=== PATIENT | male | born 1995 | race Caucasian/White ===

== ENCOUNTER 2019-03-16 20:33 | Emergency (ER) | payer SELFPAY ==
[2019-03-17] MEDS ORDERED: Lidocaine 1% INJ* 10 MG/ML 30 ML SDV INJ ONE (00:17)
[2019-03-17] MEDS ORDERED: Tetan/Diph/Pertus SYR(Tdap)* 0.5 ML SYR(BOOSTRIX) use SYR contains LATEX IM ONE (00:17)
--- NOTE | 2019-03-17 00:23 | ED ---
Upper Extremity Pain - HPI Summary HPI Summary: The patient is a 23 y/o male presenting to [facility] with a chief complaint of three lacerations to the left thumb onset tonight. He reports that he was using a drill to create a hole in an exhaust when the drill went through suddenly, hitting his left hand which was behind the exhaust. He is now sustaining three lacerations to the thumb, at the base of the metacarpal on the palmar surface in the thenar eminence, across the shaft of the posterior proximal phalanx, and from the base to head of the proximal phalanx near the webspace. He denies any numbness, and he is able to move the thumb but with pain, which is currently rated 2/10 in severity. Unsure if UTD on tetanus vaccine. Current smoker, occasional EtOH, marijuana use. Medications reviewed. Allergies noted. - History of Current Complaint Chief Complaint: EDExtremityUpper Stated Complaint: LT HAND LAC PER PT Time Seen by Provider: 03/17/19 00:10 Hx Obtained From: Patient Mechanism Of Injury: Other - drill to hand Onset/Duration: Started Minutes Ago, Traumatic, Still Present Severity Initially: Moderate Severity Currently: Moderate Pain Location: Finger - left thumb Character: Aching Aggravating Factor(s): Movement Alleviating Factor(s): Rest Associated Signs & Symptoms: Positive: Other - three lacerations to thumb. Negative: Numbness/Tingling - Allergies/Home Medications Allergies/Adverse Reactions: Allergies Allergy/AdvReac Type Severity Reaction Status Date / Time No Known Allergies Allergy Verified 03/16/19 20:38 PMH/Surg Hx/FS Hx/Imm Hx Endocrine/Hematology History: Denies: Hx Diabetes Respiratory History: Denies: Hx Asthma - Surgical History Surgical History: None Surgery Procedure, Year, and Place: none Infectious Disease History: No Infectious Disease History: Denies: Traveled Outside the [place] in Last 30 Days - Family History Known Family History: Negative: Diabetes - Social History Alcohol Use: Occasionally Hx Substance Use: Yes Substance Use Type: Reports: Marijuana Hx Tobacco Use: Yes Smoking Status (MU): Light Every Day Tobacco Smoker Have You Smoked in the Last Year: No Review of Systems Positive: Decreased ROM - left thumb secondary to pain but able to move Positive: Other - three lacerations to left thumb Negative: Paresthesia, Numbness All Other Systems Reviewed And Are Negative: Yes Physical Exam - Summary Physical Exam Summary: Constitutional: Well-developed, Well-nourished, Alert. (-) Distressed Skin: Warm, Dry HENT: Normocephalic; Atraumatic Eyes: Conjunctiva normal Neck: Musculoskeletal ROM normal neck. (-) JVD, (-) Stridor, (-) Tracheal deviation Cardio: Rhythm regular, rate normal, Heart sounds normal; Intact distal pulses; The pedal pulses are 2+ and symmetric. Radial pulses are 2+ and symmetric. Pulmonary/Chest wall: Effort normal. (-) Respiratory distress, (-) Wheezes, (-) Rales Abd: Soft, (-) tenderness, (-) Distension, (-) Guarding, (-) Rebound Musculoskeletal: (-) Edema, 2cm jagged laceration overlying the knuckle of the left thumb, 5mm jagged laceration near the webspace, 8cm jagged laceration to the palm Neuro: Alert, Oriented x3, Full function of the thumb although with pain, Motor and strength intact at each independent joint of the thumb, Some sensory deficit just in the webspace of the finger, Strength intact in each digit of the left hand, Tendons intact without injury Psych: Mood and affect Normal Triage Information Reviewed: Yes Vital Signs On Initial Exam: Initial Vitals Temp Pulse Resp BP Pulse Ox 98.2 F 93 18 128/80 100 03/16/19 20:35 03/16/19 20:35 03/16/19 20:35 03/16/19 20:35 03/16/19 20:35 Vital Signs Reviewed: Yes Procedures - Sedation Patient Received Moderate/Deep Sedation with Procedure: No - Laceration/Wound Repair 3 Location: upper extremity - left thumb at knuckle, near webspace, and thenar eminence Description: Irregular Anesthesia: 1.0%, Lido Length, Depth and Shape: jagged, 2cm (knuckle), 5mm (near webspace), and 8cm ( thenar eminence) Laceration/Wound Explored: clean Suture Type: Nylon - 4-0 Number of Sutures: 10 - total for three lacs Diagnostics - Vital Signs Vital Signs Temp Pulse Resp BP Pulse Ox 03/16/19 23:09 98.7 F 87 16 127/82 100 03/16/19 20:35 98.2 F 93 18 128/80 100 - Laboratory Lab Statement: Any lab studies that have been ordered have been reviewed, and results considered in the medical decision making process. - Radiology Hand XR Radiology Interpretation Completed By: ED Physician Summary of Radiographic Findings: No evidence of fracture or dislocation. ED physician has reviewed and interpreted this report. Pending official read. Re-Evaluation - Re-Evaluation First Eval Re-Evaluation Time: 00:15 Comment: Plan for XR, update tetanus, repair lac, place on abx Course/Dx - Course Course Of Treatment: Patient is a 23 y/o male presenting with three lacerations to the left thumb tonight after using a drill to fix a car exhaust which went through the metal. The lacerations are located at the base of the metacarpal on the palmar surface in the thenar eminence, across the shaft of the posterior proximal phalanx, and from the base to head of the proximal phalanx near the webspace. Physical exam reveals a 2cm jagged laceration overlying the knuckle of the left thumb, 5mm jagged laceration near the webspace, 8cm jagged laceration to the palm, full function of the thumb although with pain, motor and strength intact at each independent joint of the thumb, some sensory deficit just in the webspace of the finger, strength intact in each digit of the left hand, and tendons intact without injury. Tetanus booster administered. Laceration repair of the three separate lacerations using 4-0 nylon requiring 10 total sutures, 1% lido. Hand XR is negative for any fracture or dislocation. Rx for Keflex for one week. Plan for orthopedics follow-up in two days for wound recheck and suture removal in 7-9 days or otherwise specified by orthopedics. Patient understands and agrees with plan. He will return to work when cleared by orthopedics, work release given. - Diagnoses Provider Diagnoses: Laceration of multiple sites of left hand and fingers, Laceration of thumb Discharge ED - Sign-Out/Discharge Documenting (check all that apply): Patient Departure - Patient will be discharged home. - Discharge Plan Condition: Stable Disposition: HOME Prescriptions: Cephalexin CAP* [Keflex CAP*] 500 mg PO QID 7 Days #27 cap Patient Education Materials: Finger Laceration (ED) Forms: *Work Release Referrals: Fareed Isbell MD [Medical Doctor] - 2 Days Bobby Mcmanus MD [Primary Care Provider] - 7 Days Additional Instructions: Please take Keflex as prescribed. Follow up with orthopedics within two days for wound re-check. Follow up in 7-9 days for suture removal either with your primary care provider, urgent care, or the emergency department, but check with Dr. Isbell to see when he would like the sutures out. Do not return to work until cleared by orthopedics as you cannot get your hand dirty. Return to the emergency department for any new or worsening symptoms. - Attestation Statements Document Initiated by Scribe: Yes Documenting Scribe: Kathryn Escamilla Provider For Whom Abiolaibe is Documenting (Include Credential): Dr. Jose Cohn MD Scribe Attestation: IKathryn, scribed for Dr. Jose Cohn MD on 03/19/19 at 1401. Status of Scribe Document: Ready
[2019-03-17] MEDS ORDERED: Cephalexin CAP* 500 MG PO ONE (00:46)
[2019-03-17 02:03] VITALS: BP 117/72
== END 2019-03-17 02:02 | disposition home or self-care (01) ==
LOC: ED 20:33
DX: S61.012A Laceration without foreign body of left thumb without damage to nail, initial encounter (principal); Z23 Encounter for immunization; W31.1XXA Contact with metalworking machines, initial encounter; Y92.9 Unspecified place or not applicable; F17.200 Nicotine dependence, unspecified, uncomplicated
CPT/HCPCS: 12004; 90471; 90715; 99282; A9270-GY